=== PATIENT | male | born 2000 | race Caucasian/White ===

== ENCOUNTER 2023-08-28 16:13 | Emergency (ER) | payer BC ==
[2023-08-28 16:26] VITALS: RESP 18
[2023-08-28 17:39] LABS: Basophils # (A) 0.1 k/uL (0-0.2); Basophils % (A) 1 %; Eosinophils # (A) 0.1 k/uL (0-0.7); Eosinophils % (A) 1 %; HCT 42.4 % (39.0-53.0); HGB 14.2 gm/dL (13.0-17.5); Lymphocytes # (A) 1.5 k/uL (1.0-4.8); Lymphocytes % (A) 18 %; MCH 30.2 pg (25.0-35.0); MCHC 33.5 g/dL (31.0-37.0); MCV 90.3 fL (80.0-100.0); Mean Platelet Volume 7.8; Monocytes # (A) 0.7 k/uL (0-1.0); Monocytes % (A) 9 %; Neutrophils # (A) 5.8 k/uL (1.3-7.7); Neutrophils % (A) 69 %; Platelet Count 252 k/uL (150-450); RDW 13.5 % (11.5-15.5); WBC 8.4 k/uL (3.8-10.6)
[2023-08-28 17:58] LABS: ALT 13 U/L (4-49); AST 22 U/L (17-59); African American GFR (CKD) >90 (>60 ml/min/1.73 sqM); Albumin 4.6 g/dL (3.5-5.0); Alkaline Phosphatase 95 U/L (38-126); Anion Gap 11 mmol/L; Blood Urea Nitrogen 11 mg/dL (9-20); Calcium 9.6 mg/dL (8.4-10.2); Carbon Dioxide 20 mmol/L (22-30); Chloride 109 mmol/L (98-107); Glucose 87 mg/dL (74-99); Lipase 174 U/L (23-300); Non-African American GFR(CKD) >90 (>60 ml/min/1.73 sqM); Potassium 4.1 mmol/L (3.5-5.1); Sodium 140 mmol/L (137-145); Total Bilirubin 0.3 mg/dL (0.2-1.3); Total Protein 7.7 g/dL (6.3-8.2)
[2023-08-28 18:24] LABS: Appearance,Urine Clear (Clear); Bilirubin,Urine Negative (Negative); Blood,Urine Negative (Negative); Color,Urine Light Yellow; Glucose,Urine (UA) Negative (Negative); Ketones,Urine 2+ (Negative); Leukocyte Esterase,Urine Negative (Negative); Nitrite,Urine Negative (Negative); Protein,Urine Negative (Negative); Specific Gravity,Urine 1.023 (1.001-1.035); Urobilinogen,Urine <2.0 mg/dL (<2.0)
--- NOTE | 2023-08-28 18:58 | ED ---
Chest Pain HPI - General Chief Complaint: Chest Pain Stated Complaint: Chest pain/SOB Time Seen by Provider: 08/28/23 16:20 Source: patient Mode of arrival: ambulatory Limitations: no limitations - History of Present Illness Initial Comments: 23-year-old male with no past medical history who presents emergency department with reported chest pain. States that the pain has been going on for the past couple of days. Pain is located in the left side of his chest and radiates around to his left flank. States the pain is intermittent. Denies any provo cative factors. He denies fevers chills or cough. Denies any chest wall trauma. Does admit to some shortness of breath. No calf pain or swelling. No history of DVT or PE. Denies any history of sudden cardiac in family members. He has had previous cardiac workup himself because of his job. He denies any nausea or vomiting. No numbness, tingling or weakness in his extremities. No other alleviating, precipitating modifying factors - Related Data Home Medications Medication Instructions Recorded Confirmed Adalimumab [Humira(Cf) Pen] 40 mg SQ Q14D 08/28/23 08/28/23 Mesalamine [Lialda] 2.4 gm PO BID 08/28/23 08/28/23 azaTHIOprine [Imuran] 150 mg PO DAILY 08/28/23 08/28/23 Previous Rx's Medication Instructions Recorded Famotidine [Pepcid] 20 mg PO BID #28 tablet 08/28/23 Omeprazole 40 mg PO DAILY #30 cap 08/28/23 predniSONE [Deltasone] 20 mg PO DIRECTED #34 tab 08/28/23 Allergies Allergy/AdvReac Type Severity Reaction Status Date / Time No Known Allergies Allergy Verified 08/28/23 18:18 Review of Systems ROS Statement: Those systems with pertinent positive or pertinent negative responses have been documented in the HPI. ROS Other: All systems not noted in ROS Statement are negative. Past Medical History Additional Past Medical History / Comment(s): ulcerative colitis History of Any Multi-Drug Resistant Organisms: None Reported Past Surgical History: No Surgical Hx Reported Past Psychological History: No Psychological Hx Reported Smoking Status: Vaper Past Alcohol Use History: Occasional Past Drug Use History: Marijuana General Exam Limitations: no limitations General appearance: alert, in no apparent distress Head exam: Present: atraumatic, normocephalic, normal inspection Eye exam: Present: normal appearance, PERRL, EOMI. Absent: scleral icterus, conjunctival injection, periorbital swelling ENT exam: Present: normal exam, mucous membranes moist Neck exam: Present: normal inspection. Absent: tenderness, meningismus, lymphadenopathy Respiratory exam: Present: normal lung sounds bilaterally. Absent: respiratory distress, wheezes, rales, rhonchi, stridor Cardiovascular Exam: Present: regular rate, normal rhythm, normal heart sounds. Absent: systolic murmur, diastolic murmur, rubs, gallop, clicks GI/Abdominal exam: Present: soft, normal bowel sounds. Absent: distended, tenderness, guarding, rebound, rigid Extremities exam: Present: normal inspection, full ROM, normal capillary refill. Absent: tenderness, pedal edema, joint swelling, calf tenderness Back exam: Present: normal inspection Neurological exam: Present: alert, oriented X3, CN II-XII intact Psychiatric exam: Present: normal affect, normal mood Skin exam: Present: warm, dry, intact, normal color. Absent: rash Course Vital Signs 08/28/23 08/28/23 08/28/23 16:16 20:02 20:42 Temperature 98.4 F 98.2 F Pulse Rate 70 76 59 L Respiratory 18 18 18 Rate Blood Pressure 164/80 135/73 143/74 O2 Sat by Pulse 100 98 99 Oximetry Chest Pain MDM - MDM Was pt. sent in by a medical professional or institution (ALESSANDRO Vick, TURNING MACHINE OPERATOR HELPER, urgent care, hospital, or senior care...) When possible be specific @ -No Did you speak to anyone other than the patient for history (EMS, parent, family, police, friend...)? What history was obtained from this source @ -No Did you review nursing and triage notes (agree or disagree)? Why? @ -I reviewed and agree with nursing and triage notes Were old charts reviewed (outside hosp., previous admission, EMS record, old EKG, old radiological studies, urgent care reports/EKG's, senior care records)? Report findings @ -No old charts were reviewed Differential Diagnosis (chest pain, altered mental status, abdominal pain women, abdominal pain men, vaginal bleeding, weakness, fever, dyspnea, syncope, headache, dizziness, GI bleed, back pain, seizure, CVA, palpatations, mental health, musculoskeletal)? @ -Differential Chest Pain: Stable Angina, Unstable Angina, STEMI, NSTEMI Aortic Dissection, Pneumothorax, Musculoskeletal, Esophageal Spasm GERD, Cholecystitis, Pancreatitis, Zoster, this is not meant to be an all-inclusive list. EKG interpreted by me (3pts min.). @ -Yes and demonstrates sinus bradycardia with a rate of 55. CO interval 138. QRS 98. QTc of 377. No acute ST segment elevations or depressions X-rays interpreted by me (1pt min.). @ -None done CT interpreted by me (1pt min.). @ -Yes and demonstrates no PE. Colitis flare U/S interpreted by me (1pt. min.). @ -None done What testing was considered but not performed or refused? (CT, X-rays, U/S, labs)? Why? @ -None What meds were considered but not given or refused? Why? @ -None Did you discuss the management of the patient with other professionals (professionals i.e. , PA, TURNING MACHINE OPERATOR HELPER, lab, RT, psych nurse, social services specialist, skip locator, teacher, air control/anti air warfare officer, telehealth case manager)? Give summary @ -No Was smoking cessation discussed for >3mins.? @ -No Was critical care preformed (if so, how long)? @ -No Were there social determinants of health that impacted care today? How? (Homelessness, low income, unemployed, alcoholism, drug addiction, transportation, low edu. Level, literacy, decrease access to med. care, penitentiary, rehab)? @ -No Was there de-escalation of care discussed even if they declined (Discuss DNR or withdrawal of care, Hospice)? DNR status @ -No What co-morbidities impacted this encounter? (DM, HTN, Smoking, COPD, CAD, Cancer, CVA, ARF, Chemo, Hep., AIDS, mental health diagnosis, sleep apnea, morbid obesity)? @ -None Was patient admitted / discharged? Hospital course, mention meds given and route, prescriptions, significant lab abnormalities, going to OR and other pertinent info. @ -Discharge. Upon arrival patient was placed into hallway 21. Thorough history and physical exam was performed. Twelve-lead EKG was obtained. Laboratory studies are conducted. D-dimer is elevated. CT was performed which demonstrates no PE. Results are discussed with the patient. Recommended further testing to include echo, Holter monitoring and stress test. Additionally recommended EGD. I will initiate the patient on several medications for possible gastritis versus ulcer. CT did demonstrate possible colitis flare and therefore the patient will be given prednisone. Informed of the risks of using the medication with concern for gastritis or gastric ulcer. With the patient begins having any worsening pain, he must discontinue use of the prednisone and seek medical help. Patient understood this. I would like him to follow-up with the cardiology office as well as his GI doctor. Patient understood this. Instructed to return for any new or worsening symptoms. Patient discharged in stable condition Undiagnosed new problem with uncertain prognosis? @ -Yes Drug Therapy requiring intensive monitoring for toxicity (Heparin, Nitro, Insulin, Cardizem)? @ -No Were any procedures done? @ -No Diagnosis/symptom? @ -Acute left-sided chest wall pain, elevated D-dimer, evaluation for PE, ulcerative colitis flare Acute, or Chronic, or Acute on Chronic? @ -Acute Uncomplicated (without systemic symptoms) or Complicated (systemic symptoms)? @ -Complicated Side effects of treatment? @ -No Exacerbation, Progression, or Severe Exacerbation? @ -No Poses a threat to life or bodily function? How? (Chest pain, [place], [place], pneumonia, PE, COPD, DKA, ARF, appy, cholecystitis, CVA, Diverticulitis, Homicidal, Suicidal, threat to staff... and all critical care pts) @ -No Disposition Clinical Impression: Epigastric pain Disposition: HOME SELF-CARE Condition: Stable Instructions (If sedation given, give patient instructions): Epigastric Pain (ED) Additional Instructions: Please call your primary care doctor and have them order a stress test and an echo. Call your GI doctor as I do feel that you need an EGD. Take the omeprazole and Pepcid as directed to coat your stomach. Use the steroids for your ulcerative colitis. Return for any new or worsening symptoms Prescriptions: predniSONE [Deltasone] 20 mg PO DIRECTED #34 tab Omeprazole 40 mg PO DAILY #30 cap Famotidine [Pepcid] 20 mg PO BID #28 tablet Is patient prescribed a controlled substance at d/c from ED?: No Referrals: Heriberto Peters MD [Primary Care Provider] - 1-2 days Time of Disposition: 20:32
--- NOTE | 2023-08-28 19:44 | CT ---
EXAMINATION TYPE: CT chest angio for PE DATE OF EXAM: 08/28/2023 COMPARISON: None. HISTORY: pleuritic chest pain, elevated dimer CT DLP: 377.5 mGycm. Automated Exposure Control for Dose Reduction was Utilized. CONTRAST: CTA scan of the thorax is performed with IV Contrast, patient injected with 100ml mL of Iso radha 370. MIP Images are created on CT scanner and reviewed. 3D reconstructed images are created on an independent workstation and reviewed. FINDINGS: LUNGS: The lungs are grossly clear, there is no concerning parenchymal mass or nodule identified. T here is no pleural effusion or pneumothorax seen. The tracheobronchial tree is patent. MEDIASTINUM: There is satisfactory enhancement of the pulmonary artery and its branches and there is no CT evidence for pulmonary embolism. No acute aortic process. No cardiomegaly or pericardial effus ion. There are no greater than 1 cm hilar or mediastinal lymph nodes. OTHER: There are in numerable subcentimeter lymph nodes within the transverse mesocolon, a nonspecifi c finding which can correlate with diffuse colitis. There is mild thoracic colonic indistinctness but there is no transverse colonic mural thickening. IMPRESSION: Negative for pulmonary embolism or other acute thoracic process. Incidental nonspecific findings which can correlate with a clinical diagnosis of mild diffuse colitis .
[2023-08-28 20:11] VITALS: TEMP 98.2
[2023-08-28 21:08] VITALS: BP 143/74; PULSE 59
== END 2023-08-28 20:48 | disposition home or self-care (01) ==
LOC: EC 16:13
DX: R10.13 Epigastric pain (principal); F12.90 Cannabis use, unspecified, uncomplicated; F17.290 Nicotine dependence, other tobacco product, uncomplicated
CPT/HCPCS: 36415; 93005; 85379; 80053; 83690; 84484; 85025; 81003; 71275; 99285; Q9967